=== PATIENT | female | born 1980 | race Caucasian/White ===

== ENCOUNTER 2017-11-13 12:41 | Emergency (ER) | payer MEDICAID ==
[2017-11-13] MEDS: KETOROLAC 30 MG INJ IM (14:15)
[2017-11-13 14:21] LABS: ADD UMIC YES; UR ASCORBIC ACID NEGATIVE (NEGATIVE); UR BACTERIA FEW /HPF (NONE SEEN); UR BILIRUBIN (Dip) NEGATIVE (NEGATIVE); UR BLOOD (Dip) 3+ mg/dL (NEGATIVE); UR CLARITY CLEAR (CLEAR); UR COLOR STRAW (YELLOW); UR GLUCOSE (Dip) NEGATIVE (NEGATIVE); UR KETONES (Dip) NEGATIVE (NEGATIVE); UR LEUKOCYTE ESTERASE (Dip) NEGATIVE Leu/ul (NEGATIVE); UR NITRITE (Dip) NEGATIVE (NEGATIVE); UR RBC 30 /HPF (0-5); UR TOTAL PROTEIN (Dip) NEGATIVE (NEGATIVE); UR UROBILINOGEN (Dip) NEGATIVE (NEGATIVE); UR WBC 0 /HPF (0-5)
== END 2017-11-13 15:04 | disposition home or self-care (01) ==
LOC: FTE 12:41
DX: M54.5 Low back pain (principal)
CPT/HCPCS: 72100; 81001; 81025; 96372; 99284-25